=== PATIENT | male | born 1985 | race Caucasian/White ===

== ENCOUNTER 2019-11-19 12:18 | Emergency (ER) | payer OTHER, SELFPAY ==
[2019-11-19 12:19] VITALS: BP 148/99; PULSE 67; RESP 15; TEMP 36.7; O2SAT 97; BMI 29.5
--- NOTE | 2019-11-19 12:48 | ED.VIS.GEN ---
History of Present Illness Chief Complaint: Back Informant: Patient Onset: Today Current Severity: Moderate Maximum Severity: Moderate Narrative: She was lifting a tire at work developed lumbar pain consistent with prior lumbar strains. He has no radiation of the pain into his legs, he has no weakness, he has no bowel or bladder compromise no symptoms of urinary retention no saddle anesthesia. He has no recent fever chills or any other symptoms, no recent trauma Past Medical History - Allergies and Home Meds Allergies/Adverse Reactions: Allergies Penicillins Allergy (Verified 11/19/19 12:22) Anaphylaxis Primary Care Physician: Ulises Yip III, MD [Primary Care Provider] - Past Medical History: - Smoking Status: Current every day smoker Review of Systems ROS: - Her back pain All systems negative except as indicated General: Denies: Fever Cardiovascular: Denies: Chest pain Respiratory: Denies: Dyspnea Gastrointestinal: Denies: Abdominal pain Genitourinary: Reports: - - No incontinence or retention symptoms Musculoskeletal: Reports: Back pain Skin: Denies: Rash, Wounds Neurological: Denies: Weakness, Parasthesia, Numbness Hematologic: Denies: Easy bruising, Easy bleeding Physical Exam Vital Signs/Narrative: Vital Signs Temp Pulse Resp BP Pulse Ox 11/19/19 12:19 98.1 F 67 15 148/99 H 97 General: Well nourished, Well developed, - - He is relatively comfortable in the bed Cardiovascular: Regular rate, Regular rhythm Respiratory: No distress Abdomen: Soft, Nontender, - - No suprapubic tenderness or fullness Back: - - Lumbar tenderness to palpation Extremities: Nontender, No edema Neurological: Normal Strength, Normal Sensation, - - Normal patellar and Achilles reflexes. Normal plantar flexion both feet and both great toes. Normal dorsiflexion of both feet and great toes Diagnostic/Tx/Re-eval - Medical Decision Making Patient has lumbar strain without any red flags. He appears well I will treat him symptomatically. ED Disposition - Plan for ED Patient: Disposition: Home or Assisted Living Diagnosis: Lumbar strain Instructions: BACK PAIN (Acute or Chronic) Prescriptions: Hydrocodone Bitart/Apap 5-325 [[place] 5MG-325MG] 1 tablet PO Q4H PRN PRN 2 Days #10 tablet PRN Reason: Pain Transmission Status: Sent to [facility]30 Tizanidine HCl 4 mg PO TID #20 tab Transmission Status: Pending to [facility] Referrals: Ulises Yip III, MD [Primary Care Provider] - 3-5 Days
[2019-11-19] MEDS: Ketorolac 30 MG/ML Syringe IM (13:27)
[2019-11-19] MEDS: oxyCODONE 5 MG Tablet PO (13:27)
[2019-11-19] MEDS: Orphenadrine 60 MG/2 ML Ampul IM (13:27)
== END 2019-11-19 13:59 | disposition home or self-care (01) ==
LOC: ED 13:05
PROVIDERS: Emergency Provider Emergency Medicine; PCP Family Medicine
DX: S39.012A Strain of muscle, fascia and tendon of lower back, initial encounter (principal); X50.0XXA Overexertion from strenuous movement or load, initial encounter; F17.210 Nicotine dependence, cigarettes, uncomplicated
CPT/HCPCS: 96372; 99283

== ENCOUNTER 2024-02-10 08:38 | Day surgery (SDC) | payer OTHER, SELFPAY ==
[2024-02-10] VITALS (7 sets, daily range): BP systolic 118–134; BP diastolic 73–97; PULSE 75–95; RESP 14–16; TEMP 36.2–37.8; O2SAT 92–100; BMI 27.0
[2024-02-10 09:22] LABS: Absolute Lymphocyte Count 0.62 X10^3/uL (0.83-4.51); Absolute Neutrophil Count 14.4 X10^3/uL (2.0-7.7); Basophil# 0.06 X10^3/uL; Basophil% 0.4 % (0-1); Eosinophil# 0.09 X10^3/uL; Eosinophils% 0.6 % (0-5); Hematocrit 45.7 % (40-54); Hemoglobin 16.2 g/dL (13.0-16.5); Lymphocyte # 0.62 X10^3/ul (0.83-4.51); Lymphocyte % 3.9 % (19-41); Mean Corp Hgb Conc 35.4 g/dL (32-36); Mean Corpuscular Hgb 32.9 pg (27.0-32.0); Mean Corpuscular Volume 92.9 fL (80-94); Mean Platelet Vol. 8.9 fl (6.2-12.0); Monocyte# 0.49 X10^3/uL; Monocyte% 3.1 % (0-10); NRBC Flagged by Analyzer 0 % (0-5); Neutrophil # 14.37 X10^3/uL (2.7-7.7); Neutrophil % 91.2 % (47-70); Platelet Count 239 K/mm3 (150-450); RBC Distribution Width CV 11.7 % (11.6-14.6); RBC Distribution Width SD 40.2 fl (35.1-43.9); Red Blood Count 4.92 M/mm3 (4.6-6.2); White Blood Count 15.8 K/mm3 (4.4-11.0)
--- NOTE | 2024-02-10 09:26 | CT_ITS ---
STUDY: CT ABDOMEN AND PELVIS WITH CONTRAST REASON FOR EXAM: Male, 38 years old. rlq pain RADIATION DOSAGE (If Supplied By Facility): CTDIvol = ( 14.72 ) mGy, DLP = ( 674.01 ) mGycm TECHNIQUE: Transaxial images were obtained from the dome of the diaphragm to the symphysis pubis without oral contrast. 100ml-[id number] was administered. Sagittal and coronal images were reconstructed. Individualized dose optimization techniques were used for this CT. COMPARISON: Comparison is made with prior study dated January 30, 2015. FINDINGS: Minimal dependent bibasilar atelectasis. The visualized portions of the heart are within normal limits. There is decreased attenuation of the liver consistent with steatosis. Normal gallbladder and extrahepatic biliary system. Normal spleen. Normal pancreas. Normal bilateral adrenal glands. Normal right kidney. Normal left kidney. Normal visualized stomach. Normal small intestine. Scattered sigmoid diverticular disease. There is a tubular, thick-walled appendix (>7mm), consistent with acute appendicitis. Inflammatory changes are seen in the mesentery in the right lower quadrant surrounding the inflamed appendix. This causes prominence of the medial wall of the cecum as well as the distal terminal ileum. Normal abdominal aorta. Normal inferior vena cava. Normal retroperitoneum. Normal urinary bladder. There is a right-sided inguinal hernia containing adipose tissue. Normal osseous structures. CT/Abdomen/Pelvis W IV Cont ONLY IMPRESSION: Findings in keeping with acute appendicitis with inflammatory changes in the right lower quadrant affecting the medial wall of the cecum as well as the terminal ileum. Scattered sigmoid diverticula. Electronically Signed: Zeus Gomez MD at 10:23 EDT ,
--- NOTE | 2024-02-10 09:27 | EDS_ITS ---
HPI HPI - GI History of Present Illness Chief Complaint: Abd Pain Narrative Narrative: 38-year-old male with abdominal pain. He states it started fairly diffusely points to the middle of his abdomen. It started on Friday. Patient feels rundown but he has not had a fever. Has been sleeping more. States his pain is progressively worse and is more localized to the right lower quadrant. He states anytime he gets up to move or walk it hurts worse. Was seen at urgent care and referred to the ER. Patient states he has been a little constipated. He has not had diarrhea. He has not vomited. He states he has no medical problems but does not see a doctor on a regular basis. PFSH PFSH Medical History no medical history Home Medications NK 02/10/24 [History Last Taken Unknown] Allergy/AdvReac Type Severity Reaction Status Date / Time Penicillins Allergy Anaphylaxis Verified 02/10/24 08:38 Social History Smoking Status: Current every day smoker tobacco type: cigarettes EXAM Physical Exam Const Vital Signs: 02/10/24 08:38 Temperature 98 F Temperature Source Temporal Pulse Rate 91 Respiratory Rate 14 Blood Pressure 134/97 H Blood Pressure Mean 109 Pulse Ox 100 Oxygen Delivery Method Room Air Positive well nourished and well developed General Appearance ED: well developed; Negative for pallor HEENT Reports moist mucous membranes atraumatic and trauma Eyes PERRL and EOMs intact bilaterally Resp normal respiratory effort and clear to auscultation bilaterally Cardio regular rate and regular rhythm GI Palpation: tender McBurney's point and rebound tenderness present Neuro CN's II-XII intact bilaterally Sensorium / Orientation: alert, oriented to person, oriented to place and oriented to time Motor Exam: strength 5/5 throughout Psych mental status grossly normal Skin General Skin Exam: Negative for jaundice or pallor MDM MDM MDM Narrative Medical decision making narrative: Patient presenting with right sided abdominal pain. On examination he has rebound and guarding. Patient presenting with right flank pain. Differential includes colitis, diverticulitis, gastritis, pancreatitis, acute cholecystitis, constipation, appendicitis, UTI, pyelonephritis, calculi, ureteral calculi, obstruction, malignancy, dehydration, electrolyte abnormalities. Patient given morphine, Zofran, IV fluids. CT of the abdomen pelvis will be obtained to rule out appendicitis as I feel it is most likely. CBC shows white blood cell count of 15.8. Hemoglobin 16.2. Platelets are normal at 239. Patient with morphine and Zofran. CMP shows normal renal function and electrolytes. LFTs are normal with exception of bilirubin 1.4. Urinalysis negative. CT of the abdomen pelvis shows acute appendicitis. Discussed with surgery. Patient was given Cipro and Flagyl by general surgery. Patient was given an extra dose of morphine before going to the OR. Impression: 1. Acute appendicitis Lab Data Attestation: I reviewed the patient's lab results. Labs: Laboratory Results - last 24 hr 02/10/24 02/10/24 09:06 09:30 WBC 15.8 H RBC 4.92 Hgb 16.2 Hct 45.7 MCV 92.9 MCH 32.9 H MCHC 35.4 RDW Std Deviation 40.2 RDW Coeff of Rosemary 11.7 Plt Count 239 MPV 8.9 Immature Gran % (Auto) 0.800 Neut % (Auto) 91.2 H Lymph % (Auto) 3.9 L [place] % (Auto) 3.1 Eos % (Auto) 0.6 Baso % (Auto) 0.4 Absolute Neuts (auto) 14.4 H Absolute Lymphs (auto) 0.62 L Nucleated RBC % 0 Sodium 134 L Potassium 3.8 Chloride 102 Carbon Dioxide 28.0 Anion Gap 4 L BUN 8 Creatinine 1.03 Estim Creat Clear Calc 97.24 Est GFR (MDRD) Af Amer 103 Est GFR (MDRD) Non-Af 86 BUN/Creatinine Ratio 7.8 L Glucose 101 Calcium 9.2 Total Bilirubin 1.40 H AST 33 ALT 31 Alkaline Phosphatase 91 Total Protein 7.2 Albumin 3.7 Globulin 3.5 Albumin/Globulin Ratio 1.1 Lipase 18 Urine Color Yellow Urine Clarity Sl. Cloudy Urine pH 7.0 Ur Specific [place] 1.010 Urine Protein Negative Urine Glucose (UA) Normal Urine Ketones 15 H Urine Occult Blood Negative Urine Nitrite Negative Urine Bilirubin Negative Urine Urobilinogen Normal Ur Leukocyte Esterase Negative Urine RBC 0 SEEN Urine WBC 0 SEEN Ur Squamous Epith Cells 0 SEEN Urine Bacteria 0 SEEN Urine Mucus 0 SEEN Radiography Diagnostic Testing: Clinical Impression(s) from Imaging Studies Abdomen/Pelvis CT 02/10/24 09:26 IMPRESSION: Findings in keeping with acute appendicitis with inflammatory changes in the right lower quadrant affecting the medial wall of the cecum as well as the terminal ileum. Scattered sigmoid diverticula. Electronically Signed: Zeus Gomez MD at 10:23 EDT , Discharge Plan Triage Chief Complaint: Abd Pain ED Provider: Scooter Landeros Dx/Rx/DC Orders Primary Care Provider: Care Physician,No Primary
[2024-02-10 09:35] LABS: Bacteria 0 SEEN /hpf (None Seen); Mucous, Urine 0 SEEN /hpf (<or=2+); Red Blood Cells-Urine 0 SEEN /hpf (0-5); Squamous Epithelial Cells - UA 0 SEEN /hpf (0-5); White Blood Cells 0 SEEN /hpf (0-5)
[2024-02-10 09:36] LABS: Color, Urine Yellow (Yellow); Glucose, Dipstick Normal (Normal); Ketone-Dipstick 15 mg/dl (Negative); Leukocyte Esterase-Dipstick Negative /ul (Negative); Nitrite-Dipstick Negative (Negative); Occult Blood-Urine Negative /ul (Negative); Protein-Dipstick Negative (Negative); Urine Bilirubin Dipstick Negative (Negative); Urine Clarity Sl. Cloudy (Clear); Urine Urobilinogen Normal (Normal)
[2024-02-10 09:39] LABS: ALB/GLOB Ratio 1.1 RATIO (0.9-2.4); AST(SGOT) 33 U/L (15-37); Alanine Aminotransfer ALT/SGPT 31 U/L (16-61); Albumin, Serum 3.7 g/dL (3.2-5.0); Alkaline Phosphatase 91 U/L (45-117); Anion Gap 4 (5-15); BUN 8 mg/dL (7-18); BUN/Creat Ratio 7.8 RATIO (10-20); Calcium,Total 9.2 mg/dL (8.5-10.1); Chloride 102 mmol/L (98-107); Creatinine, Serum 1.03 mg/dL (0.70-1.30); EST Glomerular Filtration Rate 86 mL/min (>60); Est Glom Filt Rate - Afr Amer 103 mL/min (>60); Estimated Creatinine Clearance 97.24 ml/min; Globulin 3.5 g/dL (2.2-4.2); Glucose 101 mg/dL (74-106); Lipase 18 U/L (13-75); Potassium 3.8 mmol/L (3.5-5.1); Protein, Total 7.2 g/dL (6.4-8.2); Sodium Level 134 mmol/L (136-145)
[2024-02-10] MEDS: 0.9% Normal Saline (1000mL) 1,000 ML 999 ML IV (10:10)
--- NOTE | 2024-02-10 10:21 | EKG12_ITS ---
Test Reason : PRE OP Blood Pressure : / mmHG Vent. Rate : 088 BPM Atrial Rate : 088 BPM P-R Int : 130 ms QRS Dur : 092 ms QT Int : 326 ms P-R-T Axes : 033 056 017 degrees QTc Int : 394 ms Normal sinus rhythm Normal ECG Confirmed by BERE BUSTAMANTE, FRANCISCO ([id number]), supervising editor trailer LUKASZ VELARDE ([id number]) on 02/12/2024 7:05:38 AM Referred By: Confirmed By:FRANCISCO BLACKBURN MD
--- NOTE | 2024-02-10 10:38 | PCM.HP.STD ---
HPI - General General Date of Admission: 02/10/24 Date of Service: 02/10/24 Chief Complaint: Right lower quadrant abdominal pain HPI Narrative PAOLA BARONE, is a 38 M who presents with a 2 day history of abdominal pain and fatigue. Patient notes the abdominal pain came on gradually and localized in the right lower quadrant. He denies nausea, vomiting, fever. Patient notes his appetite has decreased. Patient denies any past medical history. He denies previous myocardial infarction, stroke and blood clots. 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 Patient denies asthma, sleep apnea, COPD. He states he does not smoke. CT scan of the ab/pel was obtained in the ED which demonstrated acute appendicitis with inflammatory changes in the right lower quadrant affecting the medial wall of the cecum as well as the terminal ileum. Patient was noted to have a white count with a left shift in his lab work. Patient was evaluated by urgent care earlier today and was sent to the ED due to his symptoms. [facility] Medical History no medical history Home Medications NK 02/10/24 [History Last Taken Unknown] Allergy/AdvReac Type Severity Reaction Status Date / Time Penicillins Allergy Anaphylaxis Verified 02/10/24 08:38 Social History Smoking Status: Current every day smoker tobacco type: cigarettes ROS Constitutional Constitutional: Reports systems reviewed and no addt'l complaints, except as documented Eyes Eyes: Reports systems reviewed and no addt'l complaints, except as documented ENT HEENT: Reports systems reviewed and no addt'l complaints, except as documented Cardiovascular Cardiovascular: Reports systems reviewed and no addt'l complaints, except as documented Respiratory/Chest Respiratory/Chest: Reports systems reviewed and no addt'l complaints, except as documented Gastrointestinal Gastrointestinal: Reports systems reviewed and no addt'l complaints, except as documented Genitourinary Genitourinary: Reports systems reviewed and no addt'l complaints, except as documented Musculoskeletal Musculoskeletal: Reports systems reviewed and no addt'l complaints, except as documented Integumentary Integumentary: Reports systems reviewed and no addt'l complaints, except as documented Neurologic Neurologic: Reports systems reviewed and no addt'l complaints, except as documented Psychiatric Psychiatric: Reports systems reviewed and no addt'l complaints, except as documented Endocrine Endocrinology: Reports systems reviewed and no addt'l complaints, except as documented Hematologic/Lymphatic Hematologic/Lymphatic: Reports systems reviewed and no addt'l complaints, except as documented Allergic/Immunologic Allergic/Immunologic: Reports systems reviewed and no addt'l complaints, except as documented Vital Signs Vital Signs Vital Signs: 02/10/24 08:38 Temperature 98 F Temperature Source Temporal Pulse Rate 91 Respiratory Rate 14 Blood Pressure 134/97 H Blood Pressure Mean 109 Pulse Ox 100 Oxygen Delivery Method Room Air Weight Weight: 182 lb 15.739 oz Body Mass Index (BMI) 27.0 Physical Exam Const alert, oriented x3 and no apparent distress HEENT normocephalic and head/scalp atraumatic Eyes PERRL Neck full ROM Lymph Lymphatic: no lymphadenopathy noted Chest inspection of chest normal Resp normal respiratory effort and clear to auscultation bilaterally Cardio regular rate and regular rhythm GI GI Narrative: Abdomen- slight distention, tender to palpation of the right lower quadrant, positive Abraham's sign. Hypoactive bowel sounds. Positive Rovsings sign. Palpation: guarding no CVA tenderness Back/Spine no CVA tenderness Extremity normal to inspection Skin no rashes or lesions noted Neuro oriented x3 Psych mental status grossly normal and thought process normal Results Lab / Micro Data 02/10/24 09:06 02/10/24 09:06 Labs: Laboratory Results - last 24 hr 02/10/24 09:06: WBC 15.8 H, RBC 4.92, Hgb 16.2, Hct 45.7, MCV 92.9, MCH 32.9 H, MCHC 35.4, RDW Std Deviation 40.2, RDW Coeff of Rosemary 11.7, Plt Count 239, MPV 8.9, Immature Gran % (Auto) 0.800, Neut % (Auto) 91.2 H, Lymph % (Auto) 3.9 L, Door % (Auto) 3.1, Eos % (Auto) 0.6, Baso % (Auto) 0.4, Absolute Neuts (auto) 14.4 H, Absolute Lymphs (auto) 0.62 L, Nucleated RBC % 0, Sodium 134 L, Potassium 3.8, Chloride 102, Carbon Dioxide 28.0, Anion Gap 4 L, BUN 8, Creatinine 1.03, Estim Creat Clear Calc 97.24, Est GFR (MDRD) Af Amer 103, Est GFR (MDRD) Non-Af 86, BUN/Creatinine Ratio 7.8 L, Glucose 101, Calcium 9.2, Total Bilirubin 1.40 H, AST 33, ALT 31, Alkaline Phosphatase 91, Total Protein 7.2, Albumin 3.7, Globulin 3.5, Albumin/Globulin Ratio 1.1, Lipase 18 02/10/24 09:30: Urine Color Yellow, Urine Clarity Sl. Cloudy, Urine pH 7.0, Ur Specific [place] 1.010, Urine Protein Negative, Urine Glucose (UA) Normal, Urine Ketones 15 H, Urine Occult Blood Negative, Urine Nitrite Negative, Urine Bilirubin Negative, Urine Urobilinogen Normal, Ur Leukocyte Esterase Negative, Urine RBC 0 SEEN, Urine WBC 0 SEEN, Ur Squamous Epith Cells 0 SEEN, Urine Bacteria 0 SEEN, Urine Mucus 0 SEEN Imaging Radiology Impression Abdomen/Pelvis CT 02/10/24 09:26 IMPRESSION: Findings in keeping with acute appendicitis with inflammatory changes in the right lower quadrant affecting the medial wall of the cecum as well as the terminal ileum. Scattered sigmoid diverticula. Electronically Signed: Zeus Gomez MD at 10:23 EDT , Assessment & Plan Assessment/Plan (1) Acute appendicitis: QUALIFIERS: Acute appendicitis type: with localized peritonitis Appendicitis gangrene presence: unspecified whether gangrene present Appendicitis perforation presence: unspecified whether perforation present Appendicitis abscess presence: unspecified whether abscess present Qualified Code(s): K35.30 - Acute appendicitis with localized peritonitis, without perforation or gangrene PLAN: I am seeing this patient in conjunction with Dr. Stearns. He will independently evaluate this patient. CT scan of the ab/pel demonstrate acute appendicitis with inflammatory changes consistent with patient's examination. Dr. Stearns will plan to perform a laparoscopic appendectomy possible conversion to open, possible ileocecectomy. Procedure details, risks and benefits have been explained to the patient and his parents. Patient has had the opportunity to ask and have questions answered. Patient verbally understands and agrees with the plan. Patient is aware of admission pending the outcome of the procedure and is agreeable to proceed. PAtient does not take any blood thinners, however he does consume a moderate amount of alcohol per week. Thank you for allowing us to participate in this patient's care. Charges/Coding Visit Charges OBSV E&M: 52153 Observ/hosp same date L2
[2024-02-10] MEDS: metroNIDAZOLE 500 MG/100 ML BAG 100 MG IV (11:10)
--- NOTE | 2024-02-10 11:15 | APP_PTH ---
PATIENT: PAOLA BARONE LOC: [facility] – [place] U#:[id number] AGE/SX: 38/M ROOM: RE02/10/[address]: Dr. Michael Stearns MD : 1985 BED: DIS: 02/10/2024 SPEC #: [id number] RECD: 02/10/24 13:26 STATUS: ROBYN LONI #: [id number] CHRISTOPHER: 02/10/24 11:[address]: Michael Stearns DEPT: SURGICAL PATHOLOGY RECD BY: Gina Chamorro ENTERED: 02/10/24 14:00 SP TYPE: APPENDIX OTHR DR: No Primary Care Phys Tissues: Appendix, NOS Procedures: Surgery Specimen Level III HEADER OPERATION: Laparoscopic appendectomy PRE-OP DIAGNOSIS: Acute appendicitis TISSUE SUBMITTED: Appendix MICROSCOPIC DIAGNOSIS Appendix, appendectomy: Acute ruptured, purulent appendicitis and periappendicitis. REGULO/ 02/11/24 MICROSCOPIC DESCRIPTION Slides are reviewed. GROSS DESCRIPTION Received in fixative is one container labeled with the patient's name and designated appendix. The specimen consists of appendix measuring 5.0 cm in length and up to 1.3 cm in diameter. The attached periappendiceal adipose tissue measures up to 2.5 cm in width. The serosa is congested and hemorrhagic. Focal area suspicious for perforation is noted. The lumen is filled with fecal material. No fecalith is identified. Electrical Maintenance Man sections are submitted in one cassette. / SJ: 02/10/24 TC: TC:2 CPT: 31968
[2024-02-10] MEDS: Bupivacaine Mpf 0.5% 30 ML VIAL (11:28)
[2024-02-10] MEDS: Ciprofloxacin 400 MG/200 ML BAG 200 MG IV (11:30)
--- NOTE | 2024-02-10 12:20 | OP.PCM_ITS ---
Report of Operation Date of Procedure: 02/10/24 Pre-Operative Diagnosis: Acute appendicitis Post-Operative Diagnosis: Same Surgery/Procedure Performed:: Laparoscopic appendectomy Type of Anesthesia: General/Regional Specimen's removed: Appendix Estimated Blood Loss (mL): 10 Description of Procedure: The patient was brought into the operating room and general anesthesia was induced. The left arm was tucked and the abdomen was prepped and draped in usual sterile fashion. A small midline incision was made superior to the umbilicus and deepened to the level of the fascia. The fascia was elevated and incised. The peritoneum was also elevated and incised. A finger sweep was performed and a balloon trocar was placed into the abdomen and inflated. The abdomen was insufflated to 15 mmHg and the camera was inserted and the abdomen was inspected for any injuries upon entering the abdomen. There were none. The patient was placed in Trendelenburg position and a 5 mm ports placed in the left lower quadrant and suprapubic areas under direct visualization. Next using atraumatic bowel graspers the appendix was identified. The gallbladder was very inflamed and tightly adherent to the fat pad going to the terminal ileum. The appendix was grasped and elevated and Enseal was used to take down the mesoappendix. A stapler was used to come across the base of the appendix. The appendix was then placed in Endo Catch bag and removed through the umbilical incision. The abdomen was irrigated and suctioned dry. The staple line was inspected and found to be hemostatic and intact. The 2 5 mm ports are removed under direct visualization. The balloon trocar was deflated and removed and all the air was removed from the abdomen. The umbilical incision fascia was closed with an 0 Vicryl avnvkc-cy-ifiod suture. The incisions were then irrigated with saline and dried. Local anesthetic was injected into the incision sites. The skin incisions were then closed with interrupted 4-0 Monocryl suture and Steri- Strips. Bandages were applied and the patient was awoken and taken to PACU in stable condition. Patient tolerated the procedure well. Admit VTE Documentation VTE Mechan Device Prophylaxis: SCD's
--- NOTE | 2024-02-10 12:33 | DCINST_ITS ---
Discharge Instructions Diet Discharge Diet: Light diet - advance as tolerated Activity Discharge Activity: May Not Drive (for 2-3 days or while taking narcotic pain medications) and May Shower Lifting Restrictions: 20 lbs for 2 weeks Dressing / Incision Call your doctor if your incision/area has: Continuous Slow Oozing, Sudden Increased Bleeding, Increased Pain/ Swelling, Increased Redness and Foul Sm elling Discharge Call your doctor if you observe: Fever of 101 or Higher Suture Line Care: Avoid Pulling/Pushing and Avoid Pinching/Bending Remove Dressing in: 2 days (Remove clear bandages in 2 days, remove Steri-Strips in 7 to 10 days) Cleanse incision/area with: Soap & Water Additional Dressing/Incision Instructions:: Use ibuprofen and Tylenol alternating for pain, oxycodone for breakthrough pain Follow Up Care Please Follow Up With: Michael Stearns MD When: Please call to schedule 2 week follow up appointment at [phone] Test Results: Test results from this visit will be discussed in further detail at your follow- up appointment, if applicable. Discharge Plan Admission Attending Provider: Michael Stearns Primary Care Provider: Care Physician,Quynh Primary Discharge Orders/Prescriptions Prescriptions: New oxycodone 5 mg tablet 5 - 10 mg PO Q6H PRN (Reason: pain) 5 Days Qty: 20 0RF Referrals / Follow Up: Care Physician,Quynh Primary [Primary Care Provider] - Disposition Disposition (needs filled in before D/C Order can be placed): Home, Self Care
--- NOTE | 2024-02-10 12:57 | SUR.PHASEII ---
phase 2, ac room 9. awaiting room on ms3.
== END 2024-02-10 15:07 | disposition home or self-care (01) ==
LOC: ED 10:36 → SDC 10:40 → ACINP 10:41 → AC 13:40 → SDC 14:28
PROVIDERS: Emergency Provider Student in an Organized Health Care Education/Training Program; Visit Provider Surgery
PROC: (CPT 47610; principal; 2024-02-10 10:55)
DX: K35.32 Acute appendicitis with perforation, localized peritonitis, and gangrene, without abscess (principal); F17.210 Nicotine dependence, cigarettes, uncomplicated
CPT/HCPCS: 44970; 00840; 74177; 80053; 81001; 83690; 85025; 88304; 93005; 99281; 99283; J7030; Q9967; A4216; C1760; J0744; J2405